=== PATIENT | female | born 1995 | race Caucasian/White ===

== ENCOUNTER 2023-06-14 09:01 | Inpatient (IN) ==
[2023-06-14] MEDS ORDERED: LIDOCAINE 1% LOCAL 20 ML VIAL INFIL PRN (11:52)
[2023-06-14] MEDS ORDERED: OXYTOCIN 30 UNITS/500 ML BAG IV PRN ×2 (11:52→19:47)
[2023-06-14] MEDS: LACTATED RINGER'S 1,000 ML IV PRN ×3 (12:10→22:47)
[2023-06-14] MEDS ORDERED: ePHEDrine sulfate 50 MG/ML AMP ONE (12:16)
[2023-06-14] MEDS ORDERED: fentaNYL citrate PF 100 MCG/2 ML VIAL ONE (12:16)
[2023-06-14] MEDS ORDERED: SODIUM CHLORIDE 0.9% PF INJ 10 ML VIAL ONE (12:16)
[2023-06-14] MEDS ORDERED: LIDOCAINE 2%/EPINEPHRINE 1:200,000 20 ML PF ONE (12:17)
[2023-06-14] MEDS ORDERED: fentaNYL 2MCG/ML ROPIVACAINE 1.25MG/ML 100 ML BAG EPI ONE (12:17)
[2023-06-14] MEDS ORDERED: BUPIVACAINE 0.25% PF 30 ML VIAL ONE (12:17)
[2023-06-14] MEDS ORDERED: SODIUM CHLORIDE 0.9% PF INJ 10 ML VIAL EPI PRN (12:44)
[2023-06-14] MEDS ORDERED: NALBUPHINE HCL INJ 10 MG/ML AMP IV PRN (12:44)
[2023-06-14] MEDS ORDERED: SODIUM CHLORIDE 0.9% PF INJ 10 ML VIAL EPI STA (12:44)
[2023-06-14] MEDS ORDERED: NALOXONE HCL 0.4 MG/1 ML VIAL/CARP IV PRN (12:44)
[2023-06-14] MEDS ORDERED: ONDANSETRON INJ 2 MG/ML 2 ML VIAL IV PRN (12:44)
[2023-06-14] MEDS ORDERED: LIDOCAINE 2%/EPINEPHRINE 1:200,000 20 ML PF EPI STA (12:44)
[2023-06-14] MEDS ORDERED: ePHEDrine sulfate 50 MG/ML AMP IV PRN (12:44)
[2023-06-14] MEDS ORDERED: fentaNYL citrate PF 100 MCG/2 ML VIAL EPI STA (12:44)
[2023-06-14] MEDS ORDERED: NALOXONE HCL 1 MG in SODIUM CHLORIDE 0.9% 1,000 ML IV PRN (12:44)
[2023-06-14] MEDS ORDERED: fentaNYL citrate PF 100 MCG/2 ML VIAL EPI PRN (12:44)
[2023-06-14] MEDS ORDERED: diphenhydrAMINE 50 MG/ML VIAL IV PRN (12:44)
[2023-06-14] MEDS ORDERED: BUPIVACAINE 0.25% PF 30 ML VIAL EPI PRN (12:44)
[2023-06-14] MEDS ORDERED: ROPIVACAINE 0.5% PF 5 MG/ML 20 ML VIAL EPI PRN (12:44)
[2023-06-14] MEDS ORDERED: fentaNYL 2MCG/ML ROPIVACAINE 1.25MG/ML 100 ML BAG EPI PRN (12:44)
[2023-06-14] MEDS ORDERED: BUPIVACAINE 0.25% PF 30 ML VIAL EPI STA (12:44)
[2023-06-14] MEDS ORDERED: LIDOCAINE 2% MPF LOCAL 5 ML VIAL EPI PRN (12:44)
--- NOTE | 2023-06-14 12:46 | Anesthesiology Consultation ---
Date of Service June 14, 2023 Assessment & Plan (1) Encounter for pre-operative examination: Chart Review Chart Review: Patient NOT seen in Pre Admission Testing and Acceptable Risk for Labor Epidural Consults Requested none History Height/Weight Height: 5 ft 3 in Weight: 64.58 kg Allergies Allergy/AdvReac Type Severity Reaction Status Date / Time No Known Allergies Allergy Verified 06/12/23 11:13 Medications Active Medications Generic Name Dose Route Start Last Admin Trade Name Freq PRN Reason Stop Dose Admin Lactated Ringer's 1,000 mls @ 125 mls/hr 06/14/23 11:52 06/14/23 12:10 Lr IV 06/16/23 11:51 999 mls/hr .Q8H PRN Administration L&D Protocol Protocol Past Medical History Medical History (Updated 06/14/23 @ 12:46 by Osiel Lyons MD) Encounter for pre-operative examination Varicella vaccination Past Family History Family History Aunt Breast cancer great aunt Mother Psoriatic arthritis Grandmother (Maternal) Psoriatic arthritis Grandfather (Maternal) Diabetes Heart disease Grandfather (Paternal) Diabetes Aunt Congenital nephrotic syndrome maternal Aunts x 2-both Other Rheumatoid arthritis Denies family history of Ovarian cancer Colorectal cancer Past Surgical History Surgical History S/P wisdom tooth extraction Social History Smoking Status: Never smoker Do You Dip or Chew Tobacco: No Hx Alcohol Use: No Hx Substance Use: No Physical Exam Vital Signs Last Vital Signs Temp 36.6 C 06/14/23 09:14 Pulse 67 06/14/23 09:15 Resp 20 06/14/23 11:03 BP 109/71 06/14/23 09:15
[2023-06-14 12:55] LABS: Hematocrit (blood only) 32.3 % (37.0-47.0); Hemoglobin 11.7 g/dl (12.0-16.0); Mean Corpuscular Hemoglobin 33.2 pg (25.0-34.0); Mean Corpuscular Hgb Conc 36.2 g/dL (32.0-36.0); Mean Corpuscular Volume 91.8 fL (80.0-100.0); Mean Platelet Volume 10.9 fL (9.4-12.4); Platelet Count 145 K/uL (130-400); RDW Coefficient of Variation 13.6 % (11.5-14.5); RDW Standard Deviation 45.3 fL (36.4-46.3); Red Blood Count 3.52 M/uL (4.20-5.40); White Blood Count 14.23 K/ul (4.8-10.8)
--- NOTE | 2023-06-14 13:45 | History & Physical Report ---
"Date of Service June 14, 2023 Assessment & Plan (1) Normal labor and delivery: Plan at at at 40w4d here for vaginal delivery Epidural when requested Pitocin augmentation as needed for adequate contraction pattern monitor tracing category 1 Admission and Anticipated Discharge Date Admission Date: June 14, 2023 History of Present Illness Primary Care Provider: NO PCP 28 y/o at 40w2d weeks confirmed via LMP CARISSA:06/14/23 . Presented with contractions that started yesterday, increasing in frequency and intensity at 2:30 am today. On arrival pt at 2cm, 2 hrs later found at 3.5/75/-2. No complications during this . Has been attending OB appointments regularly. Currently taking no medications. GBS negative, Rubella immune, BTG: O+ Contractions: 4-6 min Fluid or Blood loss: none Movement: active FHR baseline 130, moderate variability, accelerations present, decelerations absent OB Labs: Blood Type O Positive 11/07/22 Antibody Screen NEGATIVE 11/07/22 Hemoglobin 10.5 g/dl (12.0-16.0) L 03/18/23 Hematocrit 29.8 % (37.0-47.0) L 03/18/23 Mean Corpuscular Volume 88.2 fL (80.0-100.0) 11/07/22 Platelet Count 183 K/uL (130-400) 11/07/22 Rubella IgG Antibody Immune (Immune) 11/07/22 Rapid Plasma Reagin Nonreactive (Nonreactive) 11/07/22 Hepatitis B Surface Antigen. NON-REACTIVE (NON-REACTIVE) 11/07/22 Hepatitis C Antibody (EIA) NON-REACTIVE (NON-REACTIVE) 11/07/22 HIV (1&2) Ag and Ab Confirmation NON-REACTIVE (NON-REACTIVE) 11/07/22 Glucose 1 Hour 50 gm Load 86 mg/dl (70-130) 03/18/23 OB Optional Labs: Chlamydia trachomatis RNA Not Detected (NotDetected) 11/07/22 Neisseria gonorrhoeae RNA Not Detected (NotDetected) 11/07/22 Allergies Allergy/AdvReac Type Severity Reaction Status Date / Time No Known Allergies Allergy Verified 06/12/23 11:13 Patient History Medical History (Updated 06/14/23 @ 13:45 by Jhonathan Garcia MD) Encounter for pre-operative examination Varicella vaccination Surgical History S/P wisdom tooth extraction Family History Aunt Breast cancer great aunt Mother Psoriatic arthritis Grandmother (Maternal) Psoriatic arthritis Grandfather (Maternal) Diabetes Heart disease Grandfather (Paternal) Diabetes Aunt Congenital nephrotic syndrome maternal Aunts x 2-both Other Rheumatoid arthritis Denies family history of Ovarian cancer Colorectal cancer Social History (Updated 11/02/22 @ 13:12 by Isabel Palafox) Smoking Status: Never smoker Do You Dip or Chew Tobacco: No; Hx Alcohol Use: No Hx Substance Use: No Preferred Language: Kyrgyz Tile Molder Required: No Beliefs That Will Affect Care: Yazdanism marital status: marital status details: Shawn Block (30) [phone] Current Living Situation: Spouse Current Living Situation Comment: lives with spouse, no pets current occupational status: student 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 Skin: warm, dry, intact HEENT: NC/AT, anicteric sclera, conjunctiva without injection, moist mucus membranes Heart: +S1/S2, regular, no m/r/g Lungs: equal air entry bilaterally, no rales/rhonchi/wheezes Abd: +BS, soft, NT/ND, gravid uterus Cervical: 3.5|75|-2|, uterus mod. anterior Ext: warm, no clubbing/cyanosis or edema Neuro: nonfocal, patient AA&O x 4, speech intact, no facial droop, moving all extremities on command. Results & Data Vital Signs (Past 12 Hours) Vital Signs Temp Pulse Resp BP Pulse Ox 06/14/23 13:36 99 06/14/23 13:36 59 L 06/14/23 09:58 18 06/14/23 09:58 18 06/14/23 13:31 97 06/14/23 13:31 60 06/14/23 13:26 97 06/14/23 13:26 68 06/14/23 13:26 95/69 L 06/14/23 13:25 58 L 06/14/23 13:25 110/58 L 06/14/23 13:22 60 06/14/23 13:22 90/61 L 06/14/23 13:21 100 06/14/23 13:21 60 06/14/23 13:21 65 06/14/23 13:21 94/57 L 06/14/23 13:18 64 06/14/23 13:18 116/68 06/14/23 13:16 100 06/14/23 13:16 62 06/14/23 13:16 101/65 06/14/23 13:14 62 06/14/23 13:14 101/61 06/14/23 13:13 63 06/14/23 13:13 100/63 06/14/23 13:11 100 06/14/23 13:11 68 06/14/23 13:11 63 06/14/23 13:11 98/56 L 06/14/23 13:10 64 06/14/23 13:10 87/53 L 06/14/23 13:09 62 06/14/23 13:09 89/54 L 06/14/23 13:06 100 06/14/23 13:06 75 06/14/23 13:04 66 06/14/23 13:04 101/58 L 06/14/23 13:01 100 06/14/23 13:01 69 06/14/23 12:59 73 06/14/23 12:59 105/59 L 06/14/23 12:56 100 06/14/23 12:56 81 06/14/23 12:51 100 06/14/23 12:51 70 06/14/23 11:03 20 06/14/23 11:03 20 06/14/23 09:14 20 06/14/23 09:14 36.6 C 20 06/14/23 09:15 67 109/71 Supervising Physician Co-Signing Physician Notes Patient seen and evaluated and agree with the above assessment and plan. Plan for rupture of membranes following epidural Resident Activity Tracking Resident Involvement: Resident Care Provided Care Provided: OB Delivery"
--- NOTE | 2023-06-14 15:24 | Labor Progress Brief Note ---
Date of Service June 14, 2023 Subjective Reason For Note: Routine Evaluation Assessment & Plan (1) Normal labor and delivery: Plan: Progressing well. AROM clear. Category 1 tracing (2) Supervision of normal first : Admission and Anticipated Discharge Date Admission Date: June 14, 2023 Physical Exam Genitourinary: Manual OB Exam: + cervical dilation (4.5), + cervical effacement 90%, + station -1 and + amniotic fluid (AROM) clear and bloody OB Exam Monitor Tracing: + external FHT monitor used, + external uterine monitor used, + category I and + normal FHT variability Results & Data Vital Signs (Past 12 Hours) Vital Signs Temp Pulse Resp BP Pulse Ox 06/14/23 15:21 99 06/14/23 15:21 69 06/14/23 15:00 16 06/14/23 15:00 16 06/14/23 14:30 18 06/14/23 14:30 18 06/14/23 15:16 100 06/14/23 15:16 58 L 06/14/23 14:00 18 06/14/23 14:00 18 06/14/23 15:13 61 06/14/23 15:13 101/65 06/14/23 15:11 100 06/14/23 15:11 58 L 06/14/23 15:08 93 06/14/23 15:08 71 06/14/23 15:06 100 06/14/23 15:06 84 06/14/23 15:01 100 06/14/23 15:01 62 06/14/23 14:58 60 06/14/23 14:58 96/52 L 06/14/23 14:56 99 06/14/23 14:56 58 L 06/14/23 14:51 100 06/14/23 14:51 60 06/14/23 14:46 100 06/14/23 14:46 57 L 06/14/23 14:42 65 06/14/23 14:42 103/64 06/14/23 14:41 96 06/14/23 14:41 69 06/14/23 14:36 100 06/14/23 14:36 59 L 06/14/23 14:31 100 06/14/23 14:31 66 06/14/23 14:26 99 06/14/23 14:26 76 06/14/23 14:26 106/67 06/14/23 14:21 100 06/14/23 14:21 59 L 06/14/23 14:16 100 06/14/23 14:16 65 06/14/23 14:11 100 06/14/23 14:11 61 06/14/23 14:12 57 L 06/14/23 14:12 105/65 06/14/23 14:06 100 06/14/23 14:06 64 06/14/23 14:01 100 06/14/23 14:01 81 06/14/23 13:58 65 06/14/23 13:58 96/68 L 06/14/23 13:56 100 06/14/23 13:56 61 06/14/23 13:57 63 06/14/23 13:57 104/68 06/14/23 13:51 100 06/14/23 13:51 60 06/14/23 13:30 18 06/14/23 13:30 18 06/14/23 13:46 98 06/14/23 13:46 58 L 06/14/23 13:41 98 06/14/23 13:41 63 06/14/23 13:41 96/60 L 06/14/23 13:36 99 06/14/23 13:36 59 L 06/14/23 09:58 18 06/14/23 09:58 18 06/14/23 13:31 97 06/14/23 13:31 60 06/14/23 13:26 97 06/14/23 13:26 68 06/14/23 13:26 95/69 L 06/14/23 13:25 58 L 06/14/23 13:25 110/58 L 06/14/23 13:22 60 06/14/23 13:22 90/61 L 06/14/23 13:21 100 06/14/23 13:21 60 06/14/23 13:21 65 06/14/23 13:21 94/57 L 06/14/23 13:18 64 06/14/23 13:18 116/68 06/14/23 13:16 100 06/14/23 13:16 62 06/14/23 13:16 101/65 06/14/23 13:14 62 06/14/23 13:14 101/61 06/14/23 13:13 63 06/14/23 13:13 100/63 06/14/23 13:11 100 06/14/23 13:11 68 06/14/23 13:11 63 06/14/23 13:11 98/56 L 06/14/23 13:10 64 06/14/23 13:10 87/53 L 06/14/23 13:09 62 06/14/23 13:09 89/54 L 06/14/23 13:06 100 06/14/23 13:06 75 06/14/23 13:04 66 06/14/23 13:04 101/58 L 06/14/23 13:01 100 06/14/23 13:01 69 06/14/23 12:59 73 06/14/23 12:59 105/59 L 06/14/23 12:56 100 06/14/23 12:56 81 06/14/23 12:51 100 06/14/23 12:51 70 06/14/23 11:03 20 06/14/23 11:03 20 06/14/23 09:14 20 06/14/23 09:14 36.6 C 20 06/14/23 09:15 67 109/71 Coding Level of Care Code None Diagnoses Normal labor and delivery O80 Supervision of normal first Z34.00
[2023-06-14] MEDS ORDERED: HYDROCORTISONE ACETATE 25 MG SUPP PR PRN (19:47)
[2023-06-14] MEDS ORDERED: bisacodyL 10 MG SUPP PR PRN (19:47)
[2023-06-14] MEDS ORDERED: ACETAMINOPHEN 325 MG TAB PO PRN (19:47)
[2023-06-14] MEDS ORDERED: BENZOCAINE 20% SPRY 85 APPLN/85 GM CAN EXT PRN (19:47)
[2023-06-14] MEDS ORDERED: DIPHTHERIA/TETANUS/PERTUSSIS Vaccine (Tdap, Age 7+yrs) 0.5mL SYR/VL IM ONE (19:47)
--- NOTE | 2023-06-14 20:20 | Anesthesia Procedure Note ---
Date of Service June 14, 2023 Anesthesia Post Epidural Note Vital Signs Vital Signs: Temp Pulse Resp BP Pulse Ox 36.9 C 79 18 106/65 96 06/14/23 18:34 06/14/23 20:08 06/14/23 19:00 06/14/23 20:08 06/14/23 19:31 Notes Mental Status: alert / awake / arousable and participated in evaluation Patient Amnestic to Procedure: No Nausea / Vomiting: adequately controlled Pain: adequately controlled Airway Patency, RR, SpO2: stable & adequate BP & HR: stable & adequate Hydration State: stable & adequate Neuraxial Anesthesia: was administered and sensory block is resolving Anesthetic Complications: no major complications apparent and Pt Satisfied with anesthetic care Epidural: Removed without complications and With tip intact
--- NOTE | 2023-06-14 20:29 | Delivery Summary ---
Vaginal Delivery Summary Date of Service June 14, 2023 Vaginal Delivery Summary and 2nd Degree LAC Patient progressed to 10 cm dilated 100% effaced +2 station pushed over intact perineum with epidural anesthesia and delivered a viable female with weight and Apgars pending. Had the delivered in JULIAN position rest due to right transverse. No nuchal cord was noted. Body and shoulders quickly followed. was noted to have good tone and spontaneous cry shortly after delivery and a 1 minute delayed cord clamping was initiated. Cord was then double clamped and cut. remained on the maternal abdomen. Cord blood was obtained. Attention was turned to delivery of placenta which delivered intact with three-vessel cord using gentle cord traction. There is noted to be a second-degree perineal laceration which was repaired with 3-0 Vicryl and tra ditional crown stitch. Needle sponge and instrument counts were correct at the completion of the case. Both mother and stable in the immediate postdelivery period. [facility] [place] Charge Delivery Type Details: and 2nd Degree LAC
[2023-06-15] MEDS: IBUPROFEN 600 MG TAB PO PRN ×3 (00:16→19:32)
[2023-06-15] MEDS ORDERED: PRENATAL VITAMIN 1 TAB PO SCH (08:00)
[2023-06-15] MEDS ORDERED: FERROUS SULFATE 325 MG TAB PO SCH (08:00)
--- NOTE | 2023-06-15 08:20 | Obstetrical Progress Note ---
Date of Service June 15, 2023 Assessment & Plan (1) Encounter for care and examination after delivery: Day 1 status post vaginal delivery. Patient doing well. Mildly low blood pressures noted although this is not out of range of normal for patient. Patient feeling well without concern. Denying lightheadedness or dizziness. H&H pending. Subjective Ambulation: ambulating normally Voiding: no voiding problems Passing Gas:: Yes Diet Tolerance:: regular diet Lochia:: Moderate Feeding Type:: breast feeding Physical Exam Constitutional WD/WN, vitals as above Respiratory normal respiratory effort; no respiratory distress and no labored breathing Gastrointestinal (Abdomen) Inspection/Auscultation: abdomen normal to inspection; abdomen not distended Percussion/Palpation: abdomen soft; abdomen nontender, no guarding and abdomen not rigid Genitourinary OB Exam Abdomen: + fundal height Fundus: + firm and + relation to umbilicus (Below); not tender or not boggy Results & Data Vital Signs (Past 12 Hours) Vital Signs Temp Pulse Pulse Resp BP BP Pulse Ox 06/15/23 03:50 36.5 C 60 16 93/57 L 99 06/15/23 00:10 36.9 C 56 L 16 105/66 98 06/14/23 21:40 18 06/14/23 21:10 18 06/14/23 20:40 18 06/14/23 20:25 18 06/14/23 23:46 96 H 06/14/23 23:46 100/56 L 06/14/23 23:41 86 06/14/23 23:41 97/58 L 06/14/23 23:36 75 06/14/23 23:36 90/53 L 06/14/23 23:31 78 06/14/23 23:31 92/53 L 06/14/23 23:26 80 06/14/23 23:26 94/58 L 06/14/23 23:21 71 06/14/23 23:21 85/52 L 06/14/23 23:16 68 06/14/23 23:16 92/56 L 06/14/23 23:11 68 06/14/23 23:11 92/53 L 06/14/23 23:06 75 06/14/23 23:06 92/52 L 06/14/23 23:01 67 06/14/23 23:01 88/54 L 06/14/23 22:56 66 06/14/23 22:56 88/54 L 06/14/23 22:51 80 06/14/23 22:51 84/52 L 06/14/23 22:46 62 06/14/23 22:46 89/50 L 06/14/23 22:41 74 06/14/23 22:41 92/52 L 06/14/23 22:36 68 06/14/23 22:36 89/50 L 06/14/23 22:31 71 06/14/23 22:31 100/59 L 06/14/23 22:26 72 06/14/23 22:26 99/58 L 06/14/23 22:21 70 06/14/23 22:21 87/55 L 06/14/23 22:15 73 06/14/23 22:15 90/55 L 06/14/23 21:53 112 H 06/14/23 21:53 108/65 06/14/23 21:38 108 H 06/14/23 21:38 100/59 L 06/14/23 21:23 88 06/14/23 21:23 101/61 06/14/23 21:08 73 06/14/23 21:08 100/64 06/14/23 20:53 80 06/14/23 20:53 107/63 06/14/23 20:38 74 06/14/23 20:38 109/67 06/14/23 20:23 83 06/14/23 20:23 113/70 O2 Del Method 06/15/23 03:50 Room Air 06/15/23 00:10 Room Air 06/14/23 21:40 06/14/23 21:10 06/14/23 20:40 06/14/23 20:25 06/14/23 23:46 06/14/23 23:46 06/14/23 23:41 06/14/23 23:41 06/14/23 23:36 06/14/23 23:36 06/14/23 23:31 06/14/23 23:31 06/14/23 23:26 06/14/23 23:26 06/14/23 23:21 06/14/23 23:21 06/14/23 23:16 06/14/23 23:16 06/14/23 23:11 06/14/23 23:11 06/14/23 23:06 06/14/23 23:06 06/14/23 23:01 06/14/23 23:01 06/14/23 22:56 06/14/23 22:56 06/14/23 22:51 06/14/23 22:51 06/14/23 22:46 06/14/23 22:46 06/14/23 22:41 06/14/23 22:41 06/14/23 22:36 06/14/23 22:36 06/14/23 22:31 06/14/23 22:31 06/14/23 22:26 06/14/23 22:26 06/14/23 22:21 06/14/23 22:21 06/14/23 22:15 06/14/23 22:15 06/14/23 21:53 06/14/23 21:53 06/14/23 21:38 06/14/23 21:38 06/14/23 21:23 06/14/23 21:23 06/14/23 21:08 06/14/23 21:08 06/14/23 20:53 06/14/23 20:53 06/14/23 20:38 06/14/23 20:38 06/14/23 20:23 06/14/23 20:23
[2023-06-15 08:44] LABS: Hematocrit (blood only) 26.4 % (37.0-47.0); Hemoglobin 9.5 g/dl (12.0-16.0)
[2023-06-15] MEDS: DOCUSATE SODIUM 100 MG CAP PO SCH ×2 (08:44→19:32)
[2023-06-15] MEDS ORDERED: bisacodyL 5 MG TABEC PO SCH (20:00)
[2023-06-16] MEDS: IBUPROFEN 600 MG TAB PO PRN (06:02)
--- NOTE | 2023-06-16 07:50 | Obstetrical Progress Note ---
Date of Service June 16, 2023 Assessment & Plan (1) Encounter for care and examination after delivery: 28 yo PP2 from , doing well -Meeting all pp milestones -O+/rubella immune/ -f/u 6 weeks for apptotto home today Subjective Ambulation: ambulating normally Voiding: no voiding problems Passing Gas:: Yes Diet Tolerance:: regular diet Lochia:: Small Feeding Type:: breast feeding Pain well managed with medication Review of Systems Denies fevers, chills, n/v, TURNER, CP, SOB Physical Exam Constitutional WD/WN, vitals as above no acute distress Respiratory normal respiratory effort, lungs clear to auscultation Cardiovascular RRR, no murmur, no edema Gastrointestinal (Abdomen) Percussion/Palpation: abdomen soft; abdomen nontender fundus firm at umbilicus and NT Musculoskeletal BLE symmetric, nonerythematous, nontender Results & Data Vital Signs (Past 12 Hours) Vital Signs Temp Pulse Resp BP Pulse Ox O2 Del Method 06/15/23 23:00 98.2 F 71 16 98/62 L 96 Room Air
== END 2023-06-16 12:38 | disposition home or self-care (01) | DRG 807 ==
LOC: OPB 09:01 → 4S1 09:03 → 4E2 06-15 00:19

== ENCOUNTER 2025-07-16 07:37 | Inpatient (IN) ==
[2025-07-16] MEDS ORDERED: LIDOCAINE 1% LOCAL 20 ML VIAL INFIL PRN (08:01)
[2025-07-16] MEDS ORDERED: OXYTOCIN 30 UNITS/NSS 30 UNITS/500 ML BAG IV PRN ×2 (08:01→15:19)
[2025-07-16] MEDS ORDERED: CALCIUM CARBONATE 500 MG CHEWABLE TAB PO PRN (08:01)
--- NOTE | 2025-07-16 08:02 | History & Physical Report ---
Date of Service July 16, 2025 Assessment & Plan (1) 40 weeks gestation of : Plan Pitocin Arom when indicated Monitor tracing, category 1 Admission and Anticipated Discharge Date Admission Date: July 16, 2025 History of Present Illness Chief Complaint: IOL Primary Care Provider: [facility] 30 yo at 40w2d admitted for IOL for postdates. No complications. She was taking Unisom 0.5 tab daily since her 1st trimester, but stopped taking this yesterday. She is also taking daily . Contractions: irregular, sparse FM: present Bloody show: none Fluid loss: none Denies TURNER, CP, SOB, N/V/D, LE pain. GBS neg, RH+ Allergies Allergy/AdvReac Type Severity Reaction Status Date / Time No Known Allergies Allergy Verified 07/14/25 13:35 Home Medications Medication Instructions Recorded Confirmed Type vits no.124-ferrous fum 1 tab PO HS 06/14/23 07/14/25 History 27 mg iron-folic acid 800 mcg tablet ( Vitamin) docosahexaenoic acid-epa PO 11/27/24 07/14/25 History doxylamine succinate [Unisom PO 11/27/24 07/14/25 History (doxylamine)] Patient History Medical History Varicella vaccination Surgical History S/P wisdom tooth extraction Family History Aunt Breast cancer Mother Psoriatic arthritis Grandmother (Maternal) Psoriatic arthritis Grandfather (Maternal) Diabetes Heart disease Grandfather (Paternal) Diabetes Aunt Congenital nephrotic syndrome Other Rheumatoid arthritis Denies family history of Ovarian cancer Colorectal cancer Social History (Updated 07/16/25 @ 07:54 by Angeles Gipson RN) Smoking Status: Never smoker Do You Dip or Chew Tobacco: No; Hx Alcohol Use: No Hx Substance Use: No Preferred Language: Palauan Communication Ability: Effective Supervisor Type Photography Required: No Beliefs That Will Affect Care: Church marital status: marital status details: Shawn Block (32) [phone] Current Living Situation: Spouse and Family Current Living Situation Comment: lives with spouse, child, no pets current occupational status: 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 Little Review of Systems All systems reviewed & are unremarkable except as noted in HPI & below Physical Exam Constitutional: WD/WN, vitals as above Respiratory: normal respiratory effort, lungs clear to auscultation Cardiovascular: RRR, no murmur, no edema Gastrointestinal (Abdomen): normal bowel sounds, soft, nontender, no hepatosplenomegaly +gravid Skin: no rashes, warm and dry Psychiatric: A+Ox3, euthymic affect Results & Data Vital Signs (Past 12 Hours) Vital Signs Pulse BP 07/16/25 07:52 88 105/64 Laboratory Results OB Labs: Blood Type O Positive 12/02/24 Antibody Screen NEGATIVE 12/02/24 Hgb 11.2 g/dl (12.0-16.0) L 04/22/25 Hct 32.4 % (37.0-47.0) L 04/22/25 MCV 88.4 fL (80.0-100.0) 12/02/24 Plt Count 215 K/uL (130-400) 12/02/24 Rubella IgG Antibody Immune (Immune) 12/02/24 RPR Nonreactive (Nonreactive) 11/07/22 Treponema pallidum Ab Negative (Negative) 04/22/25 Hep Bs Antigen Negative (Negative) 12/02/24 Hep Bs Antigen NON-REACTIVE (NON-REACTIVE) 11/07/22 Hepatitis C Antibody Negative (Negative) 12/02/24 Hepatitis C Ab (EIA) NON-REACTIVE (NON-REACTIVE) 11/07/22 HIV 1&2 Ab/P24 Ag 4thGn Negative (Negative) 12/02/24 HIV (1&2) Ag & Ab Conf NON-REACTIVE (NON-REACTIVE) 11/07/22 Glucose 1 Hr 50 gm 102 mg/dl (70-130) 04/22/25 OB Optional Labs: Chlamydia trachomatis RNA Not Detected (NotDetected) 12/02/24 Neisseria gonorrhoeae RNA Not Detected (NotDetected) 12/02/24 Monitoring External Monitor HR: 140 Variability: moderate Accelerations: present Decelerations: absent Contractions: absent Category 1 tracing Resident Activity Tracking Resident Involvement: Resident Care Provided Care Provided: OB Delivery
[2025-07-16 08:29] LABS: Hematocrit (blood only) 31.6 % (37.0-47.0); Hemoglobin 11.8 g/dL (12.0-16.0); Mean Corpuscular Hemoglobin 34.4 pg (25.0-34.0); Mean Corpuscular Volume 92.1 fL (80.0-100.0); Platelet Count 133 K/uL (130-400); RDW Standard Deviation 46.6 fL (36.4-46.3); Red Blood Count 3.43 M/uL (4.20-5.40); White Blood Count 7.21 K/ul (4.8-10.8)
[2025-07-16] MEDS: OXYTOCIN 30 UNITS/NSS 30 UNITS/500 ML BAG IV PRN (09:04)
[2025-07-16] MEDS: LACTATED RINGER'S 1,000 ML IV PRN (09:04)
[2025-07-16] MEDS ORDERED: LIDOCAINE 2% MPF LOCAL 5 ML VIAL EPI PRN (12:45)
[2025-07-16] MEDS ORDERED: SODIUM CHLORIDE 0.9% PF INJ 10 ML VIAL EPI PRN (12:45)
[2025-07-16] MEDS ORDERED: NALBUPHINE HCL INJ 10 MG/ML AMP IV PRN (12:45)
[2025-07-16] MEDS ORDERED: fentANYL 2 MCG/ML BUPIVacaine 0.125%-NSS 100ML BAG EPI PRN (12:45)
[2025-07-16] MEDS ORDERED: BUPIVACAINE 0.25% PF 30 ML VIAL EPI PRN (12:45)
[2025-07-16] MEDS ORDERED: NALOXONE HCL 1 MG in SODIUM CHLORIDE 0.9% 1,000 ML IV PRN (12:45)
[2025-07-16] MEDS ORDERED: ROPIVACAINE 0.5% PF 5 MG/ML 20 ML VIAL EPI PRN (12:45)
[2025-07-16] MEDS ORDERED: diphenhydrAMINE 50 MG/ML VIAL IV PRN (12:45)
[2025-07-16] MEDS ORDERED: NALOXONE HCL 0.4 MG/1 ML VIAL/CARP IV PRN (12:45)
--- NOTE | 2025-07-16 12:45 | Anesthesiology Consultation ---
Date of Service July 16, 2025 Assessment & Plan (1) Encounter for pre-operative examination: Chart Review Chart Review: Patient NOT seen in Pre Admission Testing and Acceptable Risk for Labor Epidural Consults Requested none History Height/Weight Height: 5 ft 3 in Weight: 62.596 kg Allergies Allergy/AdvReac Type Severity Reaction Status Date / Time No Known Allergies Allergy Verified 07/14/25 13:35 Medications Home Medications Medication Instructions Recorded Confirmed Last Taken vits no.124-ferrous fum 1 tab PO HS 06/14/23 07/14/25 07/15/25 27 mg iron-folic acid 800 mcg tablet ( Vitamin) docosahexaenoic acid-epa PO 11/27/24 07/14/25 07/15/25 doxylamine succinate [Unisom PO 11/27/24 07/14/25 07/15/25 (doxylamine)] Active Medications Generic Name Dose Route Start Last Admin Trade Name Freq PRN Reason Stop Dose Admin Oxytocin 30 units in 500 mls @ 8 mls/hr 07/16/25 08:02 07/16/25 11:20 Pitocin 30 Units/Nss IV 07/18/25 08:01 0.48 units/hr .Q24H PRN 8 mls/hr Labor Induction/Augmentation Titration Protocol 0.48 UNITS/HR Lactated Ringer's 1,000 mls @ 125 mls/hr 07/16/25 08:01 07/16/25 12:20 Lr IV 07/18/25 08:00 999 mls/hr .Q8H PRN Infusion L&D Protocol Protocol Past Medical History Medical History Varicella vaccination Past Family History Family History Aunt Breast cancer great aunt Mother Psoriatic arthritis Grandmother (Maternal) Psoriatic arthritis Grandfather (Maternal) Diabetes Heart disease Grandfather (Paternal) Diabetes Aunt Congenital nephrotic syndrome maternal Aunts x 2-both Other Rheumatoid arthritis Denies family history of Ovarian cancer Colorectal cancer Past Surgical History Surgical History S/P wisdom tooth extraction Social History Smoking Status: Never smoker Do You Dip or Chew Tobacco: No Hx Alcohol Use: No Hx Substance Use: No Physical Exam Vital Signs Last Vital Signs Temp 98.1 F 07/16/25 10:56 Pulse 63 07/16/25 12:03 Resp 18 07/16/25 10:56 BP 101/63 07/16/25 12:03 Testing Laboratory Results 07/16/25 08:17
[2025-07-16] MEDS: LIDOCAINE 2%/EPINEPHRINE 1:200,000 20 ML PF ONE (13:04)
[2025-07-16] MEDS: BUPIVACAINE 0.25% PF 30 ML VIAL ONE (13:05)
[2025-07-16] MEDS: fentANYL 2 MCG/ML BUPIVacaine 0.125%-NSS 100ML BAG ONE (13:06)
[2025-07-16] MEDS: SODIUM CHLORIDE 0.9% PF INJ 10 ML VIAL ONE (13:10)
[2025-07-16] MEDS: LIDOCAINE 2%/EPINEPHRINE 1:200,000 20 ML PF EPI STA (13:56)
[2025-07-16] MEDS: BUPIVACAINE 0.25% PF 30 ML VIAL EPI STA (13:56)
[2025-07-16] MEDS: SODIUM CHLORIDE 0.9% PF INJ 10 ML VIAL EPI STA (13:56)
--- NOTE | 2025-07-16 14:14 | Anesthesia Procedure Note ---
Date of Service July 16, 2025 Anesthesia Epidural Re-Dose Vital Signs Temp Pulse Resp BP Pulse Ox 98.1 F 64 18 80/53 L 100 07/16/25 10:56 07/16/25 14:09 07/16/25 10:56 07/16/25 14:09 07/16/25 14:08 Notes Pain Intensity: 6 Dilatation (cm): 6.0 Effacement (%): 80 Called by nursing to evaluate epidural as the patient is having increased pain. The epidural was re-dosed with the following medications (all medications via epidural route) after negative aspiration of the epidural catheter for CSF/HEME. 0.25% Bupivacaine (8ml) with 100 mcg Fentanyl After Epidural Re-Dose Mental Status: alert / awake / arousable Pain: improving with treatment Airway Patency, RR, SpO2: stable & adequate BP & HR: stable & adequate Additional Notes: patient progressing quickly increaseing pain with slight improving using PCEA, continues to be slightly hypotensive requiring ephedrine, re-dose given
--- NOTE | 2025-07-16 15:12 | Delivery Summary ---
Vaginal Delivery Summary Date of Service July 16, 2025 Vaginal Delivery Summary and 2nd Degree LAC Induction initially begun with Pitocin patient requested epidural and when reexamined she was fully dilated with membranes ruptured she pushed over several contractions delivering a baby in occiput anterior position after delivery of the head fluid was clear there was no nuchal cord. Gentle traction on the baby released the anterior shoulder from the symphysis pubis baby was delivered with ease no excessive force live vigorous female infant delayed cord clamping but cord clamped and cut cord blood obtained placenta removed with traction IV Pitocin started second-degree tear repaired with 3-0 Vicryl QBL 320 mL sponge and instrument counts correct [facility] Vaginal Delivery Charge Delivery Type Details: and 2nd Degree LAC
[2025-07-16] MEDS ORDERED: HYDROCORTISONE ACETATE 25 MG SUPP PR PRN (15:19)
[2025-07-16] MEDS ORDERED: ACETAMINOPHEN 325 MG TAB PO PRN (15:19)
[2025-07-16] MEDS: DIPHTHER/TETAN/PERTUS Vaccine (Tdap, Adol/Adult) 0.5mL IM ONE (15:27)
--- NOTE | 2025-07-16 15:35 | Anesthesia Procedure Note ---
Date of Service July 16, 2025 Anesthesia Post Epidural Note Vital Signs Vital Signs: Temp Pulse Resp BP Pulse Ox 98.1 F 85 20 94/57 L 99 07/16/25 10:56 07/16/25 15:27 07/16/25 15:30 07/16/25 15:27 07/16/25 14:53 Pain Intensity Bilateral Abdomen: Pain Intensity: 0 Notes Mental Status: alert / awake / arousable and participated in evaluation Nausea / Vomiting: adequately controlled Pain: adequately controlled Airway Patency, RR, SpO2: stable & adequate BP & HR: stable & adequate Hydration State: stable & adequate Neuraxial Anesthesia: was administered and sensory block is resolving Anesthetic Complications: no major complications apparent and Pt Satisfied with anesthetic care Epidural: Removed without complications and With tip intact
[2025-07-16] MEDS: BENZOCAINE 20% SPRY 85 APPLN/85 GM CAN EXT PRN (16:50)
[2025-07-16 19:50] VITALS: RESP 16
[2025-07-16] MEDS: DOCUSATE SODIUM 100 MG CAP PO SCH (20:06)
[2025-07-16] MEDS: IBUPROFEN 600 MG TAB PO PRN (20:06)
--- NOTE | 2025-07-17 06:56 | Obstetrical Progress Note ---
Date of Service July 17, 2025 Assessment & Plan (1) care following delivery: Plan 30 yo post- day 1 s/p Feels well today. Vital signs stable Continue post- care Encourage ambulation and Pain controlled with ibuprofen Hgb stable Admission and Anticipated Discharge Date Admission Date: July 16, 2025 Supervising Physician Co-Signing Physician Notes Resident Physician Supervision Note: I interviewed and examined the patient. Discussed with Dr. Farah and agree with findings and plan as documented in the note. Any exceptions or clarifications are listed here: [None] Documented By: Marilynn Rogers MD, FACOG Subjective 30 yo post- day 1 s/p Ambulation: ambulating normally Voiding: no voiding problems Passing Gas:: Yes Passing Stool:: no Diet Tolerance:: regular diet Lochia:: Small Feeding Type:: breast feeding Current Pain Level:0/10 Resting comfortably this AM in NAD. Denies TURNER, CP, SOB, N/V/D, LE pain/swelling. Review of Systems Review of Systems: All systems reviewed & are unremarkable except as noted in HPI & below Physical Exam Physical Exam: General: patient resting comfortably, NAD, non-toxic in appearance, AA&O x 4, answers questions appropriately. Skin: warm, dry, intact HEENT: NC/AT, anicteric sclera, conjunctiva without injection, moist mucus membranes. Heart: +S1/S2, regular, no m/r/g Lungs: equal air entry bilaterally, no rales/rhonchi/wheezes Abd: +BS, soft, NT/ND, uterine fundus firm at umbilicus Ext: warm, no clubbing/cyanosis or edema, Noman's neg. Neuro: nonfocal, patient AA&O x 4, speech intact, no facial droop, moving all extremities on command. Results & Data Vital Signs (Past 12 Hours) Vital Signs Temp Pulse Pulse Resp BP BP Pulse Ox 07/17/25 03:20 36.5 C 67 16 97/62 L 97 07/16/25 23:45 37.2 C 67 16 95/55 L 96 07/16/25 19:49 37.3 C 75 16 105/69 98 07/16/25 19:08 107 H 94/67 L 07/16/25 19:01 93 H 97/60 L O2 Del Method 07/17/25 03:20 Room Air 07/16/25 23:45 Room Air 07/16/25 19:49 Room Air 07/16/25 19:08 07/16/25 19:01 Laboratory Results OB Labs: Blood Type O Positive 12/02/24 Antibody Screen NEGATIVE 12/02/24 Hgb 11.2 g/dl (12.0-16.0) L 04/22/25 Hct 32.4 % (37.0-47.0) L 04/22/25 MCV 88.4 fL (80.0-100.0) 12/02/24 Plt Count 215 K/uL (130-400) 12/02/24 Rubella IgG Antibody Immune (Immune) 12/02/24 RPR Nonreactive (Nonreactive) 11/07/22 Treponema pallidum Ab Negative (Negative) 04/22/25 Hep Bs Antigen Negative (Negative) 12/02/24 Hep Bs Antigen NON-REACTIVE (NON-REACTIVE) 11/07/22 Hepatitis C Antibody Negative (Negative) 12/02/24 Hepatitis C Ab (EIA) NON-REACTIVE (NON-REACTIVE) 11/07/22 HIV 1&2 Ab/P24 Ag 4thGn Negative (Negative) 12/02/24 HIV (1&2) Ag & Ab Conf NON-REACTIVE (NON-REACTIVE) 11/07/22 Glucose 1 Hr 50 gm 102 mg/dl (70-130) 04/22/25 OB Optional Labs: Chlamydia trachomatis RNA Not Detected (NotDetected) 12/02/24 Neisseria gonorrhoeae RNA Not Detected (NotDetected) 12/02/24 Resident Activity Tracking Resident Involvement: Resident Care Provided Care Provided: OB Delivery
[2025-07-17 07:58] LABS: Hematocrit (blood only) 27.3 % (37.0-47.0); Hemoglobin 9.7 g/dL (12.0-16.0); Mean Corpuscular Hemoglobin 33.4 pg (25.0-34.0); Mean Corpuscular Volume 94.1 fL (80.0-100.0); Platelet Count 130 K/uL (130-400); RDW Standard Deviation 48.7 fL (36.4-46.3); Red Blood Count 2.90 M/uL (4.20-5.40); White Blood Count 10.35 K/ul (4.8-10.8)
[2025-07-17] MEDS: PRENATAL VITAMIN 1 TAB PO SCH (09:00)
[2025-07-17 20:17] VITALS: O2SAT 97
--- NOTE | 2025-07-18 05:51 | Obstetrical Progress Note ---
Date of Service July 18, 2025 Assessment & Plan (1) care and examination: PPD#2 doing well. Feels ready for DC home. Ambulating, eating/drinking ok, min lochia, . Reviewed instructions, will follow up in 6w in office. Subjective Ambulation: ambulating normally Voiding: no voiding problems Diet Tolerance:: regular diet Lochia:: Moderate Review of Systems All systems reviewed & are unremarkable except as noted in HPI & below Physical Exam Constitutional WD/WN, vitals as above no acute distress Respiratory normal respiratory effort Cardiovascular Rate/Rhythm: regular rate and regular rhythm Gastrointestinal (Abdomen) Inspection/Auscultation: abdomen normal to inspection; abdomen not distended Percussion/Palpation: abdomen soft Genitourinary OB Exam Abdomen: + fundal height Fundus: + firm; not tender Results & Data Vital Signs (Past 12 Hours) Vital Signs Temp Pulse Resp BP Pulse Ox O2 Del Method 07/17/25 23:10 37.2 C 67 16 95/62 L 97 Room Air 07/17/25 19:45 36.8 C 84 16 99/65 L 97 Room Air
[2025-07-18 09:30] VITALS: BP 102/66; PULSE 88; TEMP 98.2
== END 2025-07-18 12:56 | disposition home or self-care (01) | DRG 807 ==
LOC: 4S1 07:37 → 4E2 19:55